=== PATIENT | female | born 1995 | race Caucasian/White ===

== ENCOUNTER → 2018-06-13 21:12 | Outpatient (CLI) | payer BC, SELFPAY | PROVIDERS: Visit Provider Nurse Practitioner | DX: N30.90 Cystitis, unspecified without hematuria (principal) | CPT/HCPCS: 87086; 87088 ==

== ENCOUNTER → 2018-12-20 21:49 | Outpatient (CLI) | payer BC, SELFPAY ==
[2018-12-20 18:27] VITALS: BMI 47.2
== END ==
LOC: LABSPEC 21:49
PROVIDERS: Visit Provider Nurse Practitioner
DX: R10.9 Unspecified abdominal pain (principal); G89.29 Other chronic pain
CPT/HCPCS: 87086; 87088

== ENCOUNTER → 2020-03-18 20:58 | Outpatient (CLI) | payer BC, OTHER, SELFPAY ==
[2020-03-18 20:24] VITALS: BMI 46.1
[2020-03-18 21:17] LABS: Absolute Lymphocyte Count 1.97 X10^3/uL (0.83-4.51); Absolute Neutrophil Count 4.2 X10^3/uL (2.0-7.7); Basophil# 0.04 X10^3/uL; Basophil% 0.6 % (0-1); Eosinophil# 0.16 X10^3/uL; Eosinophils% 2.3 % (0-5); Hematocrit 43.3 % (37-47); Hemoglobin 14.1 g/dL (12.0-15.0); Lymphocyte # 1.97 X10^3/ul (4.0); Lymphocyte % 28.6 % (19-41); Mean Corp Hgb Conc 32.6 g/dL (32-36); Mean Corpuscular Hgb 30.1 pg (27.0-32.0); Mean Corpuscular Volume 92.5 fL (81-99); Mean Platelet Vol. 10.2 fl (6.2-12.0); Monocyte# 0.47 X10^3/uL; Monocyte% 6.8 % (0-10); NRBC Flagged by Analyzer 0 % (0-5); Neutrophil # 4.24 X10^3/uL (2.7-7.7); Neutrophil % 61.6 % (47-70); Platelet Count 306 K/mm3 (150-450); RBC Distribution Width CV 11.8 % (11.6-14.6); RBC Distribution Width SD 39.8 fl (35.1-43.9); Red Blood Count 4.68 M/mm3 (4.2-5.4); White Blood Count 6.9 K/mm3 (4.4-11.0)
[2020-03-18 21:36] LABS: ALB/GLOB Ratio 1.3 RATIO (0.9-2.4); AST(SGOT) 26 U/L (15-37); Alanine Aminotransfer ALT/SGPT 36 U/L (13-56); Albumin, Serum 4.5 g/dL (3.2-5.0); Alkaline Phosphatase 76 U/L (45-117); Anion Gap 7 (5-15); BUN 9 mg/dL (7-18); BUN/Creat Ratio 11.6 RATIO (10-20); CRP, High Sensitivity Cardiac 1.76 mg/L; Chloride 106 mmol/L (98-107); Creatinine, Serum 0.78 mg/dL (0.55-1.02); EST Glomerular Filtration Rate 97 mL/min (>60); Est Glom Filt Rate - Afr Amer 117 mL/min (>60); Globulin 3.4 g/dL (2.2-4.2); Glucose 92 mg/dL (74-106); Potassium 3.7 mmol/L (3.5-5.1); Prealbumin 27.8 mg/dL (20.0-40.0); Protein, Total 7.9 g/dL (6.4-8.2); Sodium Level 139 mmol/L (136-145)
== END ==
PROVIDERS: Referring Provider Nurse Practitioner; Visit Provider Nurse Practitioner
DX: R42 Dizziness and giddiness (principal); E46 Unspecified protein-calorie malnutrition
CPT/HCPCS: 80053; 84134; 85025; 86141

== ENCOUNTER → 2021-07-02 22:48 | Outpatient (CLI) | payer BC, SELFPAY ==
[2021-07-02 22:53] LABS: Basophil# 0.04 X10^3/uL; Basophil% 0.5 % (0-1); Eosinophil# 0.15 X10^3/uL; Eosinophils% 1.8 % (0-5); Hematocrit 40.5 % (37-47); Hemoglobin 13.7 g/dL (12.0-15.0); Lymphocyte % 29.5 % (19-41); Mean Corp Hgb Conc 33.8 g/dL (32-36); Mean Corpuscular Hgb 31.4 pg (27.0-32.0); Mean Corpuscular Volume 92.9 fL (81-99); Mean Platelet Vol. 9.4 fl (6.2-12.0); Monocyte% 6.2 % (0-10); NRBC Flagged by Analyzer 0 % (0-5); Neutrophil # 5.02 X10^3/uL (2.7-7.7); Neutrophil % 61.8 % (47-70); Platelet Count 323 K/mm3 (150-450); RBC Distribution Width CV 11.6 % (11.6-14.6); RBC Distribution Width SD 39.8 fl (35.1-43.9); Red Blood Count 4.36 M/mm3 (4.2-5.4); White Blood Count 8.1 K/mm3 (4.4-11.0)
[2021-07-02 23:07] LABS: Erythrocyte Sedimentation Rate 3 mm/hr (0-30)
== END ==
PROVIDERS: Visit Provider Nurse Practitioner
DX: S00.93XA Contusion of unspecified part of head, initial encounter (principal); R51.9 Headache, unspecified; G50.8 Other disorders of trigeminal nerve
CPT/HCPCS: 85025; 85652

== ENCOUNTER 2025-06-11 09:31 | Emergency (ER) | payer OTHER, SELFPAY ==
[2025-06-11 09:32] VITALS: BP 129/79; PULSE 81; RESP 16; TEMP 36.4; O2SAT 99
--- NOTE | 2025-06-11 16:46 | EX.ED.DYSGE1 ---
HPI History of Present Illness Chief Complaint: Allergic Reaction Narrative Narrative: Patient is a 29-year-old female with past medical history of hypothyroidism, GERD who presents to the emergency department with concern for allergic reaction to Flonase with steroids and this. States that she has had reaction to steroids in the past and normally she uses Flonase without however she was given the wrong Flonase. She states that she used this around 6:00 last night and notes that she woke up this morning with swelling in her eyes felt like her throat was closing therefore she came here to the emergency department to be further evaluated. She also notes that she was seen in [place] last week at some point time and was diagnosed with sinus infection was placed on doxycycline which she just darted yesterday as well and when question why she just started this she cannot give me a straight answer. States that she does not know if this is reaction to this doxycycline or the Flonase. Patient states that she not take anything for this reaction at home either. Patient notes that she did not break out in a rash. [facility] Medical History GERD (gastroesophageal reflux disease) Diarrhea Adverse effect of drug with proper dosing Hypothyroid Home Medications ?Medication ?Instructions ?Recorded ?Last Taken ?Type levothyroxine 112 mcg tablet 112 mcg PO DAILY 06/13/18 Unknown History albuterol sulfate 90 mcg/actuation 2 puff inhalation Q4H PRN 06/29/22 Unknown Rx aerosol inhaler (ProAir HFA) shortness of breath or wheezing #6.7 grams amoxicillin 875 mg-potassium 1 tab PO BID #20 tabs 12/25/24 Unknown Rx clavulanate 125 mg tablet Allergy/AdvReac Type Severity Reaction Status Date / Time fluticasone (From Flonase) Allergy Mild other Verified 06/11/25 09:34 cephalexin Allergy Rash Verified 06/13/18 17:11 prednisone AdvReac Intermediate combined Verified 01/16/21 18:04 with levofloxin made her sick. Family History Other Diabetes Heart disease Hypertension Liver cancer Lung cancer Seizures Thyroid cancer Thyroid disorder Social History Smoking Status: Never smoker ROS ROS ED ROS Narrative Constitutional: Denies any fevers, chills, headaches Eyes: Denies double vision Cardiovascular: Denies chest pain Respiratory: No shortness of breath Abdomen: Abdominal pain, nausea, vomiting :, Denies any urinary symptoms Neurological: Denies numbness, weakness, tingling Musculoskeletal: Denies back pain Skin: Denies any rashes or lesions EXAM Physical Exam Narrative Exam Narrative: General: Patient is lying in bed rest comfortably did not appear to be acute distress Head: Atraumatic, normocephalic Eyes, ears, nose and throat: PERRL bilateral, EOMI bilateral, no conjunctival injection noted, no posterior pharynx erythema uvula midline, no sublingual swelling Neck: Soft, supple, trachea midline Cardiovascular: Regular rate and rhythm no murmurs gallops rubs noted Respiratory: Clear to auscultation bilaterally no rales rhonchi or wheeze noted Extremities: +5/5 strength noted in the bilateral lower extremities Neurological: Patient was following commands knew that she was at [facility] year is 2024 Skin: Warm, dry, intact no rashes or lesions noted no hives no petechia no purpura no sloughing skin noted Const Vital Signs: 06/11/25 09:32 Temperature 97.5 F L Temperature Source Temporal Pulse Rate 81 Respiratory Rate 16 Blood Pressure 129/79 H Blood Pressure Mean 95 Pulse Ox 99 Oxygen Delivery Method Room Air MDM MDM MDM Narrative Medical decision making narrative: Patient is a 29-year-old female who presents to the emergency department concern for allergic reaction. On the differential diagnose includes but limited to anxiety, allergic reaction to Flonase versus doxycycline. Patient be given Benadryl and be reevaluated. Went to reevaluate the patient and she eloped prior to reevaluation. Discharge Plan Triage Chief Complaint: Allergic Reaction ED Provider: Dung Salazar Dx/Rx/DC Orders Clinical Impression: Encounter for medical screening examination, History of hypothyroidism, GERD (gastroesophageal reflux disease) Prescriptions: No Action levothyroxine 112 mcg tablet 112 mcg PO DAILY albuterol sulfate [ProAir HFA] 90 mcg/actuation HFA aerosol inhaler 2 puff INHALATION Q4H PRN (Reason: shortness of breath or wheezing) Qty: 6.7 12RF amoxicillin-pot clavulanate 875-125 mg tablet 1 tab PO BID Qty: 20 0RF Primary Care Provider: Crystal Heck Referrals: Crystal Heck, [facility] [Primary Care Provider, Family Practice] Print Language: [place] Disposition Disposition: Home, Self Care Discharge Date/Time: 06/11/25 11:44
== END 2025-06-11 11:44 | disposition home or self-care (01) ==
LOC: ED 11:10
PROVIDERS: Emergency Provider Emergency Medicine; PCP Nurse Practitioner Family; Visit Provider Emergency Medicine
DX: Z00.00 Encounter for general adult medical examination without abnormal findings (principal); K21.9 Gastro-esophageal reflux disease without esophagitis
CPT/HCPCS: 99282